=== PATIENT | female | born 1950 | race Caucasian/White ===

== ENCOUNTER 2016-12-16 08:38 | Observation (INO) | payer MEDICARE ==
[~2016-12-16] VITALS: Ht 149.9 cm; Wt 98.4 kg
[~2016-12-16 08:38] MED LIST: ASPIRIN 81M81 MG/TA2 PO; CELEXA10 MG PO; DITROPAN 5MG TAB5 MG PO; FERROUS SU325 MG/TAB PO; FLEXERIL 1010 MG/TAB PO; FOLIC ACID 11 MG/TA1 PO; GLUCOTROL10 MG PO; INSHUMULINN SQ; IRON325 MG PO; LASIX 20MG TABL20 MG PO; LIPITOR 40MG TA40 MG PO; LOPRESSOR 225 MG/TAB PO; MIRALAX PA17 GM/Dose PO; NEPHROCAP PO; NEURONTIN400 MG/CAP PO; NORCO 325 MG-7.1 TAB PO; NORVASC 5MG5 MG/TAB PO; SYNTHROID0.137 MG PO; TYLENOL 500MG500 MG PO; UNABLE TO ASSESS; VITAMIN C500 MG PO; ZAROXOLYN 2.52.5 MG PO
[2016-12-16 09:16] LABS: BASO % 0.4 % (0.0-2.0); EOS # 0.1 (0.0-0.7); EOS % 1.6 % (0-4.0); GRAN # 6.5 (1.4-6.5); GRAN % 72.2 % (42.2-75.2); LYMPH # 1.6 (1.2-3.4); MEAN CELL VOLUME 98 fl (80.0-100.0); MEAN CORPUSCULAR HGB CONC 34 g/dl (33.0-37.0); MEAN PLATELET VOLUME 9.9 fl (7.4-10.4); MONO # 0.7 (0.1-0.6); MONO % 7.5 % (1.7-9.3); PLATELET COUNT 195 K/mm3 (130-400); RED BLOOD COUNT 2.83 M/mm3 (4.10-5.30); REDCELL DISTRIBUTION WIDTH-CV 13.6 % (11.5-14.5); WHITE BLOOD COUNT 8.9 K/mm3 (4.8-10.8)
[2016-12-16 09:19] LABS: HEMATOCRIT 27.7 % (37.0-47.0); HEMOGLOBIN 9.3 g/dl (12.5-16.0); MEAN CORPUSCULAR HEMOGLOBIN 33 pg (27.0-31.0)
[2016-12-16 09:38] LABS: ADJUSTED CALCIUM 9.4 mg/dL (8.4-10.2); ALANINE AMINOTRANSFERASE 30 U/L (9-52); ALBUMIN 4.3 gm/dL (3.5-5.0); ALKALINE PHOSPHATASE 129 U/L (50-136); ANION GAP 11 mmol/L (7-16); BILIRUBIN,TOTAL 0.9 mg/dL (0.0-1.0); BLOOD UREA NITROGEN 43 mg/dL (7-17); CALCIUM 9.6 mg/dL (8.4-10.2); CARBON DIOXIDE 32 mmol/L (22-30); CHLORIDE 98 mmol/L (98-107); CREATININE, serum 1.89 mg/dL (0.52-1.25); GLUCOSE 142 mg/dL (74-106); MAGNESIUM 2.1 mg/dL (1.6-2.3); PHOSPHOROUS 3.6 mg/dL (2.5-4.5); POTASSIUM 3.5 mmol/L (3.4-5.0); SODIUM 141 mmol/L (137-145); TOTAL PROTEIN 8.3 gm/dL (6.4-8.2)
[2016-12-16 10:00] LABS: TROPONIN-I < 0.012 ng/mL (0.000-0.034)
[2016-12-16] MEDS ORDERED: LASIX 80MG TABL80 MG PO (10:12)
[2016-12-16] MEDS ORDERED: ZOLOFT 100MG100 MG PO (12:31)
[2016-12-16] MEDS ORDERED: REQUIP0.25 MG PO (12:32)
[2016-12-16 12:37] VITALS: BP 104/54; PULSE 66; TEMP 98.3
[2016-12-16 15:29] VITALS: BP 126/59; PULSE 70; TEMP 98.3
[2016-12-16 21:40] VITALS: BP 112/40; PULSE 68; TEMP 98.5
[2016-12-17 01:50] VITALS: BP 103/41; PULSE 62; TEMP 97.5
[2016-12-17 05:48] VITALS: BP 107/59; PULSE 56; TEMP 97.3
[2016-12-17 08:31] LABS: BASO % 0.4 % (0.0-2.0); EOS # 0.2 (0.0-0.7); EOS % 2.3 % (0-4.0); GRAN # 5.3 (1.4-6.5); GRAN % 72.7 % (42.2-75.2); LYMPH # 1.2 (1.2-3.4); LYMPH % 16.2 % (20.0-51.0); MEAN CELL VOLUME 100 fl (80.0-100.0); MEAN CORPUSCULAR HGB CONC 32 g/dl (33.0-37.0); MEAN PLATELET VOLUME 10.1 fl (7.4-10.4); MONO # 0.6 (0.1-0.6); MONO % 8.1 % (1.7-9.3); PLATELET COUNT 182 K/mm3 (130-400); RED BLOOD COUNT 2.65 M/mm3 (4.10-5.30); REDCELL DISTRIBUTION WIDTH-CV 13.7 % (11.5-14.5); WHITE BLOOD COUNT 7.3 K/mm3 (4.8-10.8)
[2016-12-17 08:38] VITALS: BP 124/40; PULSE 76; TEMP 97.9
[2016-12-17 08:41] LABS: HEMATOCRIT 26.6 % (37.0-47.0); HEMOGLOBIN 8.6 g/dl (12.5-16.0); MEAN CORPUSCULAR HEMOGLOBIN 32 pg (27.0-31.0)
[2016-12-17 08:42] LABS: CALCIUM 9.5 mg/dL (8.4-10.2); CREATININE, serum 2.94 mg/dL (0.52-1.25); POTASSIUM 4.1 mmol/L (3.4-5.0)
== END 2016-12-17 12:36 | disposition home or self-care (01) ==
LOC: COL.ER 08:38 → MEDICAL 10:56
PROVIDERS: Emergency Medicine; Internal Medicine
DX: R07.89 Other chest pain (principal); E11.40 Type 2 diabetes mellitus with diabetic neuropathy, unspecified; E11.22 Type 2 diabetes mellitus with diabetic chronic kidney disease; N18.6 End stage renal disease; I12.0 Hypertensive chronic kidney disease with stage 5 chronic kidney disease or end stage renal disease; E03.9 Hypothyroidism, unspecified; E78.5 Hyperlipidemia, unspecified; Z99.2 Dependence on renal dialysis; Z79.84 Long term (current) use of oral hypoglycemic drugs; Z79.4 Long term (current) use of insulin
CPT/HCPCS: G0378; J1650; J1815; Q9967

== ENCOUNTER → 2017-04-07 | Outpatient (CLI) | payer MEDICARE ==
[~2017-04-07] MED LIST changes: +LASIX 80MG TABL80 MG PO; +REQUIP0.25 MG PO; +ZOLOFT 100MG100 MG PO
== END ==
LOC: SUN.DIA 09-16 17:45
DX: E11.22 Type 2 diabetes mellitus with diabetic chronic kidney disease (principal); E11.65 Type 2 diabetes mellitus with hyperglycemia; E11.40 Type 2 diabetes mellitus with diabetic neuropathy, unspecified; N18.9 Chronic kidney disease, unspecified; E66.9 Obesity, unspecified; Z68.42 Body mass index [BMI] 45.0-49.9, adult; Z71.3 Dietary counseling and surveillance; E78.5 Hyperlipidemia, unspecified; E03.9 Hypothyroidism, unspecified; I12.9 Hypertensive chronic kidney disease with stage 1 through stage 4 chronic kidney disease, or unspecified chronic kidney disease; Z99.2 Dependence on renal dialysis; M10.9 Gout, unspecified; I50.9 Heart failure, unspecified

== ENCOUNTER → 2018-01-04 | Outpatient (CLI) | payer MEDICARE | LOC: COL.RAD 06:58 | DX: R59.0 Localized enlarged lymph nodes (principal); R07.89 Other chest pain | CPT/HCPCS: Q9967 ==

== ENCOUNTER → 2018-02-24 | Outpatient (CLI) | payer MEDICARE ==
[2018-02-24] VITALS (9 sets, daily range): BP systolic 118–192; BP diastolic 47–82; PULSE 68–134
[~2018-02-24] VITALS: Ht 149.9 cm; Wt 99.8 kg
[~2018-02-24] MED LIST changes: +ASPIRIN E.C. 8181 MG PO; +BENADRYL25 M2 PO; +INDOCIN50 MG PO; +NEURONTIN100 MG/CAP PO; +NOVOLIN N100 U/ML SQ; +RENVELA800 MG PO; +REQUIP 0.5MG0.5 MG PO; +TRIPHROCAPS SOFT1 MG PO
== END ==
LOC: COL.CARD 08:52
DX: R07.9 Chest pain, unspecified (principal)
CPT/HCPCS: J1250

== ENCOUNTER 2019-02-09 07:22 | Outpatient (CLI) | payer MEDICARE ==
[~2019-02-09] VITALS: Ht 149.9 cm; Wt 102.2 kg
[2019-02-09] VITALS (7 sets, daily range): BP systolic 118–151; BP diastolic 60–74; PULSE 53–70
[2019-02-09] MEDS ORDERED: REQUIP2 MG PO (08:28)
[2019-02-09] MEDS ORDERED: LYRICA 50MG CAP50 MG PO (08:30)
[2019-02-09] MEDS ORDERED: ZOLOFT 100MG100 MG PO (08:32)
[2019-02-09] MEDS ORDERED: NEXIUM 40MG40 MG PO (08:33)
--- NOTE | 2019-02-09 09:48 | NUR ---
SEE MERGE REPORT FOR MEDICATION ADMINISTRATION TIMES WELL INTR/POST SEDATION ASSESSMENTS.
--- NOTE | 2019-02-09 10:40 | NUR ---
PT BACK TO ROOM 9 POST AV FISTULOGRAM. VSS AND AX0X3. BAND AID C/D/I TO LEFT FA FISTULA. PT RESTING COMFORTABLY IN BED AT THIS TIME.
--- NOTE | 2019-02-09 12:13 | NUR ---
PT VSS AND AX0X3 POST AV FISTULOGRAM. LEFT FISTULA SITE C/D/I. DENIES PAIN AT THIS TIME. 20G REMOVED FROM RIGHT AC BY STAFF. DISCHARGE INSTRUCTIONS REVIEWED AND SIGNED. 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
== END 2019-02-09 12:13 | disposition home or self-care (01) ==
LOC: COL.CAR 07:22
DX: T82.898A Other specified complication of vascular prosthetic devices, implants and grafts, initial encounter (principal); E11.22 Type 2 diabetes mellitus with diabetic chronic kidney disease; I12.0 Hypertensive chronic kidney disease with stage 5 chronic kidney disease or end stage renal disease; N18.6 End stage renal disease; Z99.2 Dependence on renal dialysis; Z96.652 Presence of left artificial knee joint; Z88.1 Allergy status to other antibiotic agents; Z88.8 Allergy status to other drugs, medicaments and biological substances; Z87.891 Personal history of nicotine dependence
CPT/HCPCS: J1644; J2250; J3010; Q9967